=== PATIENT | female | born 1990 | race Caucasian/White ===

== ENCOUNTER 2024-03-23 17:12 | Emergency (ER) | payer OTHER, MEDICARE, SELFPAY ==
[2024-03-23 17:19] VITALS: BP 123/89
--- NOTE | 2024-03-23 17:30 | ED.GENMED ---
History of Present Illness
General
Chief Complaint: Prescription Refill
Source: patient
Time Seen by Provider: 03/23/24 17:26
History of Present Illness
History of Present Illness:
33-year-old female request 1 dose of topiramate. She is due for her prescription to be refilled tomorrow. It was supposed to be filled today but the pharmacy is closed sooner than expected. She takes 100 mg every night for prevention of
migraines. She has no complaints otherwise.
Past History
Past History
ED Past Medical History: Asthma, GERD, Psychiatric (KEERTHI (generalized anxiety disorder) and Other (migraines)
ED Past Surgical History: Other
Social History
Tobacco: Non-smoker
Alcohol: None
Drug: None
Personal: Single
Living: with family
Employment: Employed
Family History
Family History: Other (Migraines)
Phy Exam
Physical Exam
Physical Exam:
General: Well-appearing female no acute respiratory distress HEENT normocephalic atraumatic
Neurologic alert and conversing appropriately normal gait
Extremities: No cyanosis
Course
Orders/Labs/Results
Orders:
Orders
03/23/24 17:29
Topiramate [Topamax] 100 mg PO NOW STA
Vital Signs
Initial and Last Documented VS:
Initial Vital Signs
Temp Pulse Resp BP Pulse Ox
98.1 F 112 16 123/89 99
03/23/24 17:19 03/23/24 17:19 03/23/24 17:19 03/23/24 17:19 03/23/24 17:19
Last Documented Vital Signs
Temp Pulse Resp BP Pulse Ox
98.1 F 112 16 123/89 99
03/23/24 17:19 03/23/24 17:19 03/23/24 17:19 03/23/24 17:19 03/23/24 17:19
MDM/Problems Addressed
Differential Diagnosis Includes:
Patient is requesting a dose of topiramate to hold her over till tomorrow when she gets her prescription refilled. She has no complaints otherwise. 100 mg of topiramate were ordered. I did directly visualize her prescription bottle and the dose
that she takes.
*Critical Care Note
Total Time (30-74mins, 75-104mins- exclusive of procedures): Not Applicable
ED Attending Note
-
Portions of this chart may have been created with voice recognition software.� Occasional wrong word or��sound alike� substitutions may have occurred due to the inherent limitations of voice recognition software.
Discharge Plan
Departure
Patient Disposition: Home (Routine Discharge)
Date of Disposition: 03/23/24
Time of Disposition: 17:31
Patient with high blood pressure during this ER visit?: No
Discharge Problem:
Medication refill
Prescriptions:
No Action
montelukast 10 MG tablet
10 mg PO QPM
mometasone-formoterol [Dulera] 13 GM HFA aerosol inhaler
2 puff IH BID
albuterol sulfate [Proventil HFA] 90 MCG/PUFF HFA aerosol inhaler
1 puff inhalation Q6H PRN (Reason: sob)
ondansetron 4 MG tablet,disintegrating
4 mg PO Q12H PRN (Reason: nausea)
cetirizine [Zyrtec] 10 MG tablet,disintegrating
10 mg PO DAILY
candesartan 4 MG tablet
8 mg PO DAILY
duloxetine 60 MG capsule,delayed release(DR/EC)
40 mg PO DAILY
topiramate [Trokendi XR] 25 MG capsule,extended release 24hr
25 mg PO BID
Renuka
1 tab PO DAILY
clonazepam 0.5 MG tablet
0.5 mg PO BID
ergocalciferol (vitamin D2) 400 UNIT tablet
1,000 mg PO DAILY
mexiletine 150 MG capsule
150 mg PO TID
magnesium 250 MG tablet
500 mg PO DAILY
metoclopramide HCl 10 MG tablet
10 mg PO TID PRN (Reason: nausea or headache)
butterbur root extract [Petadolex 75] 75 MG capsule
75 mg PO BID
Dhe Injectable
IM
Ketamine HCl
Patient Comments:
100mg/ml 10% nasal spray q15min as neededfor headache max 10 sprays /daymax 2 days/week
Vitamin B2
400 mg PO DAILY
Activity Restrictions/Additional Instructions:
Please fill your prescription as planned tomorrow. Return if needed otherwise
Discharge Date and Time
Print Language: UKRAINIAN
[2024-03-23] MEDS: TOPAMAX 100 MG PO (17:51)
== END 2024-03-23 17:54 | disposition home or self-care (01) ==
LOC: EMR 17:12
PROVIDERS: EMERGENCY PHYSICIAN Emergency Medicine; FAMILY PHYSICIAN Family Medicine
DX: Z76.0 Encounter for issue of repeat prescription (principal); K21.9 Gastro-esophageal reflux disease without esophagitis; G43.909 Migraine, unspecified, not intractable, without status migrainosus; J45.909 Unspecified asthma, uncomplicated; F41.1 Generalized anxiety disorder; Z91.011 Allergy to milk products; Z88.8 Allergy status to other drugs, medicaments and biological substances; Z91.018 Allergy to other foods
CPT/HCPCS: 99281

== ENCOUNTER → 2024-05-16 06:35 | Day surgery (SDC) | payer MEDICARE, OTHER, SELFPAY | LOC: GI 06:35 | PROVIDERS: ATTENDING PHYSICIAN Internal Medicine Gastroenterology | DX: R63.4 Abnormal weight loss (principal); R12 Heartburn | CPT/HCPCS: 43235 ==

== ENCOUNTER → 2024-05-19 06:31 | Day surgery (SDC) | payer MEDICARE, OTHER, SELFPAY | LOC: GI 06:31 | PROVIDERS: ATTENDING PHYSICIAN Internal Medicine Gastroenterology | DX: R12 Heartburn (principal); R63.4 Abnormal weight loss; K31.7 Polyp of stomach and duodenum; K22.89 Other specified disease of esophagus; K31.89 Other diseases of stomach and duodenum | CPT/HCPCS: 43239; 88305; 87220; 88342 ==

== ENCOUNTER → 2024-06-26 07:42 | Outpatient (REF) | payer MEDICARE, OTHER, SELFPAY | LOC: RAD 07:42 | PROVIDERS: ATTENDING PHYSICIAN Internal Medicine Gastroenterology; FAMILY PHYSICIAN Family Medicine | DX: K21.9 Gastro-esophageal reflux disease without esophagitis (principal); Z11.0 Encounter for screening for intestinal infectious diseases; R63.4 Abnormal weight loss | CPT/HCPCS: 78264; A9541 ==

== ENCOUNTER → 2025-03-27 14:24 | Outpatient (REF) | payer MEDICARE, OTHER, SELFPAY ==
[2025-03-27 15:33] LABS: Hematocrit 37.6 % (37.0-47.0); Hemoglobin 12.5 g/dL (12.0-16.0); Mean Corp Hgb Conc. 33.2 g/dL (33.0-37.0); Mean Corpuscular Volume 89.5 fL (81.0-99.0); Nucleated Red Blood Cells % 0 %; Platelet Count 217 10^3/uL (130-400); Red Cell Dist. Width 13.2 % (11.5-14.5)
[2025-03-27 15:53] LABS: ALT (SGPT) 22 U/L (0-35); AST (SGOT) 19 U/L (14-36); Albumin 4.6 g/dl (3.5-5.0); Alkaline Phosphatase 59 U/L (38-126); Blood Urea Nitrogen 14 mg/dl (7-17); Calcium 9.1 mg/dl (8.4-10.2); Carbon Dioxide 22 mmol/L (22-30); Chloride 106 mmol/L (98-107); Glucose 97 mg/dl (70-99); HDL Cholesterol 71 mg/dl; Iron 165 ug/dl (37-170); LDL Cholesterol, Calculated 86 mg/dl; Potassium 3.6 mmol/L (3.5-5.1); Sodium 137 mmol/L (135-145); Total Protein 7.0 g/dl (6.3-8.2); Very Low Density Lipoprotein 15 mg/dl (0-30); eGFR > 60.00
[2025-03-27 16:02] LABS: Total Iron Binding Capacity 264 ug/dl (265-497)
== END ==
LOC: REG 14:24
PROVIDERS: ATTENDING PHYSICIAN Physician Assistant
DX: Z86.2 Personal history of diseases of the blood and blood-forming organs and certain disorders involving the immune mechanism (principal); E78.1 Pure hyperglyceridemia; E03.9 Hypothyroidism, unspecified
CPT/HCPCS: 36415; 80053; 80061; 83540; 83550; 84443; 85025